=== PATIENT | male | born 1995 | race Hispanic/Latino ===

== ENCOUNTER 2017-10-12 20:17 | Emergency (ER) | payer BC, OTHER ==
[2017-10-12] MEDS ORDERED: Acetaminophen 500 MG TAB ONE (21:09)
[2017-10-12] MEDS ORDERED: Bicillin LA 1.2 MILLION UNITS/2 ML SYRINGE ONE (21:43)
[2017-10-12] MEDS ORDERED: Dexamethasone 4 MG TAB ONE (21:43)
== END 2017-10-12 22:22 | disposition home or self-care (01) ==
LOC: ERS 20:17
DX: J02.0 Streptococcal pharyngitis (principal); F17.210 Nicotine dependence, cigarettes, uncomplicated; Z71.6 Tobacco abuse counseling
CPT/HCPCS: 96372; 99406; J0561; J8540